=== PATIENT | female | born 1935 | race Caucasian/White ===

== ENCOUNTER 2024-01-14 20:35 | Emergency (ER) | payer MEDICARE, OTHER, SELFPAY ==
[2024-01-14 20:38] VITALS: BP 159/99
[2024-01-14 22:22] VITALS: BP 190/74
--- NOTE | 2024-01-14 22:44 | ED.GENMED ---
History of Present Illness
General
Chief Complaint: Blood Pressure Problem
Source: patient
Time Seen by Provider: 01/14/24 22:28
Travel History
Have you had any contact with someone who has COVID-19?: No
Do you have any symptoms of coronavirus? Fever > 100 degrees, chills, cough, shortness of breath, sore throat, loss of taste or smell, muscle aches, or headache?: No
History of Present Illness
History of Present Illness:
This patient is an 88-year-old female who was feeling perfectly well until after dinner this evening, she was just sitting there and started to feel dizzy described as feeling 'weird'. This was not associated with a sense of movement or spinning,
nausea, vomiting, fever, chills, numbness, tingling, change in vision, change in speech, focal weakness, chest pain, dyspnea, or other abnormalities. She denies recent leg swelling, recent trauma. She is compliant with her medications. She
checked her blood pressure and noticed that it was elevated which prompted her to call her daughter to bring her here. She is now asymptomatic. Patient denies recent urinary symptoms or other complaints.
Past History
Past History
ED Past Medical History: Arrthythmia (Status post ablation), HTN, Hypothyroidism, Other (Arthritis) and Other (Diverticulitis)
ED Past Surgical History: Orthopedic and Other (Ablation)
Social History
Tobacco: Non-smoker
Alcohol: Occasional
Drug: None
Personal:
Living: alone
Family History
Family History: Negative Diabetes, Hypertension, Early CAD, Asthma or Cancer
Phy Exam
Physical Exam
Physical Exam:
GENERAL: Alert , in no apparent distress
EYE: pupils equal and reactive, no photophobia, no nystagmus, EOMI
NECK: Supple, no significant adenopathy.
ENT: o/p clr, mmm.
CARDIAC: Regular rate and rhythm, 2 out of 6 systolic murmur noted.
LUNGS: Clear breath sounds bilaterally, no acute respiratory distress, no wheezes/rales/rhonchi
ABDOMEN: Soft, without focal tenderness, no r/g, no cvat
NEUROLOGICAL: Alert and oriented, no focal neuro deficits, motor 5 out of 5, sensory intact, [id number] normal, cranial nerves II through XII intact
SKIN: Warm and dry, skin intact.
MUSCULOSKELETAL: No edema, well perfused.
PSYCH: Normal and appropriate interaction.
Course
Orders/Labs/Results
Orders:
Orders
01/14/24 20:43
Electrocardiogram (*1) Urgent
Reason for Study: Vertigo / Dizzy
EKG- Treatment ONCE
01/14/24 22:37
Electrocardiogram (*1) Stat
Reason for Study: Vertigo / Dizzy
Cardiac Monitoring- Treatment ONCE
O2 Therapy [RESP] Urgent
Titrate/Wean O2 to maintain O2 sat greater than (%): 90
Special Instructions: Maintain sats >/=90%
Pulse Ox/spot Check [RESP] Urgent
Quantity: 1
Special Instructions: ON ROOM AIR
01/14/24 22:39
Complete Blood Count/With Diff Urgent
Comprehensive Metabolic Panel Urgent
Troponin I Urgent
01/14/24 23:36
Urinalysis Reflex To Culture Urgent
Date Specimen was Collected: 01/14/24
Time Specimen was Collected: 23:32
Urine Microscopic Reflex Cult Urgent
01/15/24 00:00
CT Head W/o Iv Contrast Urgent
Reason For Exam: dizzy
Abnormal Lab Results
01/14/24 01/14/24
22:39 23:36
WBC 11.4 H 10^3/uL
(4.8-10.8)
MCH 32.2 H pg
(27.0-31.0)
Absolute Neuts (auto) 9.2 H 10^3/uL
(1.4-6.5)
Neutrophils % 80.8 H %
(42.2-75.2)
Lymphocytes % 12.2 L %
(20.5-51.1)
Sodium 132 L mmol/L
(135-145)
Creatinine 0.5 L mg/dL
(0.6-1.0)
Glucose 119 H mg/dl
(70-99)
Ur Occult Blood Reflex Trace A
(Negative)
Leukocyte Esterase Rfl Trace A
(Negative)
01/14/24 22:39
01/14/24 22:39
Vital Signs
Initial and Last Documented VS:
Initial Vital Signs
Temp Pulse Resp BP Pulse Ox
98.3 F 80 16 159/99 97
01/14/24 20:38 01/14/24 20:38 01/14/24 20:38 01/14/24 20:38 01/14/24 20:38
Last Documented Vital Signs
Temp Pulse Resp BP Pulse Ox
98.3 F 69 14 135/84 97
01/14/24 20:38 01/15/24 00:15 01/15/24 00:15 01/15/24 00:00 01/14/24 20:38
*Critical Care Note
Total Time (30-74mins, 75-104mins- exclusive of procedures): Not Applicable
Update Note
Update Note:
Patient presents to the Emergency Department with ___dizziness
Number and Complexity of Problems Addressed at the Encounter
� Chronic conditions affecting care:
� Acute Exacerbation and/or Progression of Chronic Illness:
� Differential Diagnosis includes: But not limited to electrolyte disturbance, spontaneous intracerebral bleed, hypertension related dizziness, etc.
Amount and/or Complexity of Data to be Reviewed and Analyzed
� I performed an independent evaluation of and my interpretation is:
EKG: Read by me, normal sinus rhythm, LVH, slight ST depressions with T wave inversions laterally which is unchanged from prior ECG
CT: Vision read no evidence of acute intracranial abnormality, small lacunar in the right basal ganglia, mild volume loss
Xrays:
Laboratory Studies: Generally unremarkable
Other:
� Review of other/old records reveals: Patient admitted for cardioversion August 2022
� Clinical information was obtained by an independent historian: Daughter who is bedside
� Prescriptions/Medications Considered but not given:
� Further testing considered but not performed:
Risk of Complications and/or Morbidity or Mortality of Patient Management
� Social determinants of health affecting care:
� Discussion with other providers (PCP, Hospitalists, Consultants, etc):
� Escalation of care including admission/observation vs risk of discharge considered: 1:19 AM patient remains well-appearing, no symptoms noted. No chest pain, numbness, tingling, neurological symptoms, etc. Symptoms earlier
may have been related to episode of elevated blood pressure. Patient advised to check her blood pressure and record it once a day at the same time for the next week until she sees Dr. Desouza as scheduled on Tuesday. If elevated markedly or
associated symptoms she is advised to contact him or return to the ER [facility].
ED Attending Note
-
Portions of this chart may have been created with voice recognition software.� Occasional wrong word or��sound alike� substitutions may have occurred due to the inherent limitations of voice recognition software.
Discharge Plan
Departure
Patient Disposition: Home (Routine Discharge)
Date of Disposition: 01/15/24
Time of Disposition: 01:17
Patient with high blood pressure during this ER visit?: Yes
Condition: Good
Discharge Problem:
Dizziness
Instructions: Dizziness, Adult ED, BLOOD PRESSURE
Prescriptions:
No Action
cholecalciferol (vitamin D3) 1,000 UNITS tablet
1,000 units PO DAILY
spironolactone 25 mg Tablet
25 mg PO DAILY
losartan 100 mg Tablet
100 mg PO DAILY
Eliquis 5 mg Tablet
5 mg PO BID
levothyroxine [Synthroid] 50 mcg Tablet
50 mcg PO DAILY
acetaminophen [Tylenol] 325 mg Tablet
325 mg PO DAILYPRN PRN (Reason: mild pain)
fexofenadine 60 mg Tablet
60 mg PO QPM
cyanocobalamin (vitamin B-12) 250 mcg Tablet
250 mcg PO DAILY
diltiazem HCl 120 mg Capsule,Extended Release 24 Hr
120 mg PO DAILY
timolol maleate (PF) 0.5 % Dropperette
1 drp LEFT EYE BID
Lumigan 0.01 % Drops
1 drp OPHTHALMIC (EYE) DAILY
Rx Instructions:
left eye
Referrals:
Rashawn Kapoor MD [Family Provider] - Next open appointment
Activity Restrictions/Additional Instructions:
IF YOU DEVELOP RECURRENT/NEW DIZZINESS, ANY CHEST PAIN, TROUBLE BREATHING, FEVER, VOMITING, NUMBNESS, CHANGE IN VISION/SPEECH, OR OTHER WORRISOME SIGNS, GO TO THE ER IMMEDIATELY!
Interventions
Interventions:
*Risk Screen - Suicide Last Done: 01/14/24 20:38
*General Assessment Last Done: 01/14/24 20:38
*Neglect/Abuse Screening Last Done: 01/14/24 20:38
*ED COVID-19 Vaccine History Last Done: 01/14/24 20:38
ED- Cardiac Assessment Last Done: 01/14/24 22:45
ED- Neurological Assessment Last Done: 01/14/24 22:45
ED- Pulmonary Assessment Last Done: 01/14/24 22:45
[2024-01-14 22:50] VITALS: BP 166/82
[2024-01-14 22:50] LABS: % Basophils 0.4 % (0-2); % Eosinophils 0.8 % (0-6); % Immature Granulocytes 0.4 % (0-0.5); % Lymphocytes 12.2 % (20.5-51.1); % Monocytes 5.4 % (1.7-9.3); % Neutrophils 80.8 % (42.2-75.2); Absolute Eosinophils 0.1 10^3/uL (0-0.7); Absolute Lymphocytes 1.4 10^3/uL (1.2-3.4); Absolute Monocytes 0.6 10^3/uL (0.1-0.6); Absolute Neutrophils 9.2 10^3/uL (1.4-6.5); Hematocrit 40.2 % (37.0-47.0); Hemoglobin 14.6 g/dL (12.0-16.0); Mean Corp Hgb Conc. 36.3 g/dL (33.0-37.0); Mean Corpuscular Hgb 32.2 pg (27.0-31.0); Mean Corpuscular Volume 88.7 fL (81.0-99.0); Mean Platelet Volume 9.7 fL (7.4-10.4); Nucleated Red Blood Cells % 0 %; Platelet Count 270 10^3/uL (130-400); Red Blood Cell Count 4.53 10^6/uL (4.20-5.40); Red Cell Dist. Width 13.2 % (11.5-14.5); White Blood Cell Count 11.4 10^3/uL (4.8-10.8)
[2024-01-14 23:00] VITALS: BP 157/73
[2024-01-14 23:03] LABS: ALT (SGPT) 18 U/L (0-35); AST (SGOT) 26 U/L (14-36); Albumin 4.4 g/dl (3.5-5.0); Alkaline Phosphatase 88 U/L (38-126); Blood Urea Nitrogen 14 mg/dl (7-17); Calcium 9.8 mg/dl (8.4-10.2); Carbon Dioxide 23 mmol/L (22-30); Chloride 102 mmol/L (98-107); Estimated Creatinine Clearance 58 ml/min; Glucose 119 mg/dl (70-99); Potassium 4.1 mmol/L (3.5-5.1); Sodium 132 mmol/L (135-145); Total Bilirubin 0.6 mg/dl (0.2-1.3); Total Protein 7.8 g/dl (6.3-8.2); eGFR > 60.00
[2024-01-14 23:14] LABS: Troponin I < 0.012 ng/ml
[2024-01-15] VITALS: BP 135/84
[2024-01-15 00:05] LABS: Urine Albumin Negative (Neg - Trace); Urine Bilirubin Negative (Negative); Urine Character Clear (Clear); Urine Color Straw; Urine Glucose Negative (Negative); Urine Ketone Negative (Negative); Urine Leukocyte Trace (Negative); Urine Nitrite Negative (Negative); Urine Occult Blood Trace (Negative); Urine Urobilinogen Negative (Neg - 1+)
[2024-01-15 00:20] LABS: Urine Red Blood Cell None Seen /HPF (0-2)
== END 2024-01-15 01:40 | disposition home or self-care (01) ==
LOC: EMR 20:35
PROVIDERS: EMERGENCY PHYSICIAN Emergency Medicine; FAMILY PHYSICIAN Internal Medicine Geriatric Medicine
DX: R42 Dizziness and giddiness (principal); R01.1 Cardiac murmur, unspecified; E03.9 Hypothyroidism, unspecified; M19.90 Unspecified osteoarthritis, unspecified site; K57.92 Diverticulitis of intestine, part unspecified, without perforation or abscess without bleeding; Z88.8 Allergy status to other drugs, medicaments and biological substances; Z91.030 Bee allergy status; Z91.013 Allergy to seafood; Z79.01 Long term (current) use of anticoagulants
CPT/HCPCS: 99285; 94760; 70450; 80053; 81003; 81015; 84484; 85025; 93005

== ENCOUNTER → 2024-04-19 07:41 | Outpatient (REF) | payer MEDICARE, OTHER, SELFPAY ==
[2024-04-19 09:18] LABS: % Basophils 0.5 % (0-2); % Eosinophils 2.5 % (0-6); % Immature Granulocytes 0.5 % (0-0.5); % Lymphocytes 31.5 % (20.5-51.1); % Monocytes 7.9 % (1.7-9.3); % Neutrophils 57.1 % (42.2-75.2); Absolute Eosinophils 0.1 10^3/uL (0-0.7); Absolute Lymphocytes 1.4 10^3/uL (1.2-3.4); Absolute Monocytes 0.4 10^3/uL (0.1-0.6); Absolute Neutrophils 2.5 10^3/uL (1.4-6.5); Hematocrit 40.4 % (37.0-47.0); Hemoglobin 13.7 g/dL (12.0-16.0); Mean Corp Hgb Conc. 33.9 g/dL (33.0-37.0); Mean Corpuscular Hgb 31.4 pg (27.0-31.0); Mean Corpuscular Volume 92.7 fL (81.0-99.0); Mean Platelet Volume 9.9 fL (7.4-10.4); Nucleated Red Blood Cells % 0 %; Platelet Count 250 10^3/uL (130-400); Red Blood Cell Count 4.36 10^6/uL (4.20-5.40); Red Cell Dist. Width 13.6 % (11.5-14.5); White Blood Cell Count 4.4 10^3/uL (4.8-10.8)
[2024-04-19 09:41] LABS: ALT (SGPT) 20 U/L (0-35); AST (SGOT) 29 U/L (14-36); Albumin 4.4 g/dl (3.5-5.0); Alkaline Phosphatase 65 U/L (38-126); Blood Urea Nitrogen 12 mg/dl (7-17); Calcium 9.8 mg/dl (8.4-10.2); Carbon Dioxide 30 mmol/L (22-30); Chloride 100 mmol/L (98-107); Glucose 100 mg/dl (70-99); HDL Cholesterol 75 mg/dl; LDL Cholesterol, Calculated 148 mg/dl; Phosphorus 4.2 mg/dl (2.5-4.5); Potassium 4.5 mmol/L (3.5-5.1); Sodium 136 mmol/L (135-145); Total Bilirubin 0.7 mg/dl (0.2-1.3); Total Cholesterol 243 mg/dl (50-199); Total Protein 7.7 g/dl (6.3-8.2); Triglyceride 104 mg/dl (10-149); Very Low Density Lipoprotein 20 mg/dl (0-30); eGFR > 60.00
[2024-04-19 09:57] LABS: Free T4 0.88 ng/dl (0.78-2.19); Vitamin D, 25-OH*** 51.2 ng/mL (30-80)
[2024-04-19 10:10] LABS: TSH 3.28 uIU/ml (0.47-4.68)
[2024-04-19 13:58] LABS: Urine Albumin Negative (Neg - Trace); Urine Bilirubin Negative (Negative); Urine Character Clear (Clear); Urine Color Yellow; Urine Glucose Negative (Negative); Urine Ketone Negative (Negative); Urine Leukocyte Negative (Negative); Urine Nitrite Negative (Negative); Urine Occult Blood Negative (Negative); Urine Urobilinogen Negative (Neg - 1+)
== END ==
LOC: REG 07:41
PROVIDERS: ATTENDING PHYSICIAN Internal Medicine Geriatric Medicine
DX: I10 Essential (primary) hypertension (principal); E03.9 Hypothyroidism, unspecified; I48.19 Other persistent atrial fibrillation; E78.5 Hyperlipidemia, unspecified; R73.01 Impaired fasting glucose; Z99.89 Dependence on other enabling machines and devices; I70.0 Atherosclerosis of aorta; E55.9 Vitamin D deficiency, unspecified; Z13.89 Encounter for screening for other disorder; I48.0 Paroxysmal atrial fibrillation; H40.1230 Low-tension glaucoma, bilateral, stage unspecified
CPT/HCPCS: 36415; 80053; 80061; 81003; 82306; 84100; 84439; 84443; 85025

== ENCOUNTER → 2024-07-12 09:58 | Outpatient (REF) | payer MEDICARE, OTHER, SELFPAY | LOC: RCS 09:58 | PROVIDERS: ATTENDING PHYSICIAN Internal Medicine Interventional Cardiology; FAMILY PHYSICIAN Internal Medicine Geriatric Medicine | DX: I35.0 Nonrheumatic aortic (valve) stenosis (principal) | CPT/HCPCS: 93306 ==

== ENCOUNTER → 2024-09-24 10:30 | Outpatient (REF) | payer MEDICARE, OTHER, SELFPAY | LOC: RAD 10:30 | PROVIDERS: ATTENDING PHYSICIAN Internal Medicine Gastroenterology; FAMILY PHYSICIAN Internal Medicine Geriatric Medicine | DX: K59.01 Slow transit constipation (principal) | CPT/HCPCS: 74018 ==

== ENCOUNTER → 2024-11-09 08:14 | Day surgery (SDC) | payer MEDICARE, OTHER, SELFPAY ==
[2024-11-09 08:53] LABS: Hematocrit 42.2 % (37.0-47.0); Hemoglobin 14.4 g/dL (12.0-16.0); Mean Corp Hgb Conc. 34.1 g/dL (33.0-37.0); Mean Corpuscular Hgb 32.1 pg (27.0-31.0); Mean Platelet Volume 9.6 fL (7.4-10.4); Platelet Count 259 10^3/uL (130-400); Red Blood Cell Count 4.49 10^6/uL (4.20-5.40); Red Cell Dist. Width 13.4 % (11.5-14.5); White Blood Cell Count 5.5 10^3/uL (4.8-10.8)
[2024-11-09 09:26] LABS: Blood Urea Nitrogen 12 mg/dl (7-17); Calcium 9.8 mg/dl (8.4-10.2); Carbon Dioxide 30 mmol/L (22-30); Chloride 98 mmol/L (98-107); Glucose 106 mg/dl (70-99); Potassium 4.2 mmol/L (3.5-5.1); Sodium 136 mmol/L (135-145); eGFR > 60.00
== END ==
LOC: SDSPAT 08:14
PROVIDERS: ATTENDING PHYSICIAN Surgery; FAMILY PHYSICIAN Internal Medicine Geriatric Medicine
DX: Z01.810 Encounter for preprocedural cardiovascular examination (principal)
CPT/HCPCS: 85027; 36415; 80048

== ENCOUNTER 2024-11-23 06:48 | Day surgery (SDC) | payer MEDICARE, OTHER, SELFPAY ==
[2024-11-09 13:01] VITALS: BMI 29.6
[2024-11-23] VITALS (10 sets, daily range): BP systolic 120–166; BP diastolic 62–91; BMI 29.6
--- NOTE | 2024-11-23 06:51 | HP.FOC2 ---
Focused History & Physical
Chief Complaint
HPI:
Chief Complaint: Right inguinal/femoral hernia
HPI / Indication for Planned Procedure: 89-year-old female with longstanding history of intermittent swelling and discomfort in the right inguinal region. Her symptoms are rather sporadic however over the past few months she has been experiencing a
burning discomfort and pinch in the right inguinal region on a more regular basis. She is also able to palpate a lump which is larger in size than previously. At times it is hard to reduce and firm to the touch. These events will usually last for
15 to 20 minutes until the hernia is able to be reduced. Bowels are generally otherwise moving regularly. No symptoms in the left inguinal region.
Relevant Past Medical History: Other (Dropped bladder, paroxysmal atrial tachycardia, hypertension, hyperlipidemia, history of H. pylori, history of retinal tear, GERD, osteoarthritis, hypothyroidism, Raynaud's, A-fib, hemorrhoids)
Relevant Social History: Negative
Relevant Family History: Negative
Relevant Past Surgical History: Positive for (Bladder lift, AP vaginal repair, cholecystectomy, hysterectomy, LIH repair, left total knee, breast biopsies, cardiac ablation)
Review of Systems
Review of Pertinent Systems: All Systems Negative
Medication
See Medication form for detailed medications: Yes
Medication List (including Herbals & OTC):
cholecalciferol (vitamin D3) 25 mcg (1,000 unit) tablet 1,000 units PO DAILY 04/18/18
apixaban 5 mg tablet (Eliquis) 5 mg PO BID 09/03/22
losartan 100 mg tablet 100 mg PO DAILY 09/03/22
spironolactone 25 mg tablet 25 mg PO DAILY 09/03/22
levothyroxine 50 mcg tablet (Synthroid) 50 mcg PO DAILY 05/16/23
cyanocobalamin (vitamin B-12) 250 mcg tablet 250 mcg PO DAILY 08/29/23
diltiazem HCl 120 mg capsule,24 hr,extended release 120 mg PO DAILY 08/29/23
fexofenadine 60 mg tablet 60 mg PO QPM 08/29/23
timolol maleate (PF) 0.5 % eye drops in a dropperette 1 drp BOTH EYES BID 08/29/23
bimatoprost 0.01 % eye drops (Lumigan) 1 drp ophthalmic (eye) HS 01/14/24
Medications Reviewed: Yes
Allergies and Reactions
Patient has Allergies: Yes
Noted Allergies and Reactions:
Allergy/AdvReac Type Severity Reaction Status Date / Time
bee venom protein (honey bee) Allergy Swelling Verified 11/16/24 09:10
brimonidine Allergy Swelling Verified 11/16/24 09:10
of eye
difluprednate [From Durezol] Allergy swelling Verified 11/16/24 09:10
of eye
furosemide [From Lasix] Allergy ringing of Verified 11/16/24 09:10
ears
labetalol Allergy over-all Verified 11/16/24 09:10
sickness
metronidazole Allergy irritated Verified 11/16/24 09:10
skin
shellfish derived Allergy Swelling Verified 11/16/24 09:10
of lips
(1980)
dexamethasone AdvReac Swelling Verified 11/16/24 09:10
of legs
after
dental
procedure
Pertinent Physical Exam
All Other Systems: Negative
Head/Neck: Normal
Lungs: Normal
Heart: Normal
Abdomen: Other (Reducible right inguinal hernia, probable femoral)
Extremities: Normal
Neurological: Normal
Diagnosis / Assessment
89-year-old female presenting for scheduled operative correction right inguinal/femoral hernia
Plan / Procedure
Laparoscopic repair right inguinal/femoral hernia with mesh
Anesthesia/Sedation to be done by Anesthesia Provider: Yes
--- NOTE | 2024-11-23 06:54 | W.SUR.PREOP ---
Pre-Operative Surgical Note
-
I have examined this patient prior to the performance of the scheduled procedure.
The patient's condition is unchanged from the time of the current History and
Physical and the patient is able to undergo the scheduled procedure.
[2024-11-23] MEDS: NORMOSOL-R/PLASMALYTE-A 1000 IV (07:44)
[2024-11-23] MEDS: EMEND 40 MG PO (07:44)
[2024-11-23] MEDS: TYLENOL 1000 MG PO (07:44)
--- NOTE | 2024-11-23 09:16 | W.IMMPOSTOP ---
Addendum entered and electronically signed by Arthur Raza MD 11/23/24 09:25:
#[id number]
Original Note:
Surgical Immed Post Op Note
-
Primary Surgeon: Arthur Raza MD
Assisting Surgeon: Justine Dalal PA-c
Pre-op Diagnosis: RIH
Post-op Diagnosis: Right femoral hernia
Procedure Performed: Lap TEP Right Femoral Hernia repair with mesh; 3d max lg mid
Anesthesia Type: GETA + 0.25% Marcaine w/ epi
Specimen / Cultures: None
Estimated Blood Loss: 4 mL
Complications: None immediate
Operative Findings: Right femoral hernia. Direct space normal. Indirect space normal. No peritoneal entry. 3D max large mid weight mesh. Secured to Alfredo's x 2 with capture tacks
The assistance of Justine Puente PA-C was required due to the complexity of the procedure. During the procedure Justine Puente PA-C assisted with management of the laparoscope for visualization and closure of the incision sites.
== END 2024-11-23 10:57 | disposition home or self-care (01) ==
LOC: SDS 06:48
PROVIDERS: ATTENDING PHYSICIAN Surgery; FAMILY PHYSICIAN Internal Medicine Geriatric Medicine
DX: K41.90 Unilateral femoral hernia, without obstruction or gangrene, not specified as recurrent (principal)
CPT/HCPCS: 49659

== ENCOUNTER → 2025-04-22 08:02 | Outpatient (REF) | payer MEDICARE, OTHER, SELFPAY ==
[2025-04-22 08:53] LABS: % Basophils 0.9 % (0-2); % Eosinophils 2.8 % (0-6); % Immature Granulocytes 0.4 % (0-0.5); % Monocytes 10.2 % (1.7-9.3); % Neutrophils 60.7 % (42.2-75.2); Absolute Basophils 0.1 10^3/uL (0-0.2); Absolute Eosinophils 0.2 10^3/uL (0-0.7); Absolute Lymphocytes 1.4 10^3/uL (1.2-3.4); Absolute Monocytes 0.6 10^3/uL (0.1-0.6); Absolute Neutrophils 3.5 10^3/uL (1.4-6.5); Hematocrit 41.8 % (37.0-47.0); Hemoglobin 13.9 g/dL (12.0-16.0); Mean Corp Hgb Conc. 33.3 g/dL (33.0-37.0); Mean Corpuscular Hgb 31.5 pg (27.0-31.0); Mean Corpuscular Volume 94.8 fL (81.0-99.0); Mean Platelet Volume 9.4 fL (7.4-10.4); Nucleated Red Blood Cells % 0 %; Platelet Count 290 10^3/uL (130-400); Red Blood Cell Count 4.41 10^6/uL (4.20-5.40); Red Cell Dist. Width 13.8 % (11.5-14.5); White Blood Cell Count 5.7 10^3/uL (4.8-10.8)
[2025-04-22 09:19] LABS: Urine Albumin Negative (Neg - Trace); Urine Bilirubin Negative (Negative); Urine Character Clear (Clear); Urine Color Yellow; Urine Glucose Negative (Negative); Urine Ketone Negative (Negative); Urine Leukocyte Negative (Negative); Urine Nitrite Negative (Negative); Urine Occult Blood 1+ (Negative); Urine Urobilinogen Negative (Neg - 1+)
[2025-04-22 09:23] LABS: ALT (SGPT) 18 U/L (0-35); AST (SGOT) 22 U/L (14-36); Albumin 4.4 g/dl (3.5-5.0); Alkaline Phosphatase 77 U/L (38-126); Blood Urea Nitrogen 12 mg/dl (7-17); Calcium 10.1 mg/dl (8.4-10.2); Carbon Dioxide 28 mmol/L (22-30); Chloride 101 mmol/L (98-107); Glucose 102 mg/dl (70-99); HDL Cholesterol 95 mg/dl; LDL Cholesterol, Calculated 146 mg/dl; Potassium 4.3 mmol/L (3.5-5.1); Sodium 137 mmol/L (135-145); Total Bilirubin 0.7 mg/dl (0.2-1.3); Total Cholesterol 255 mg/dl (50-199); Total Protein 7.7 g/dl (6.3-8.2); Triglyceride 72 mg/dl (10-149); Very Low Density Lipoprotein 14 mg/dl (0-30); eGFR > 60.00
[2025-04-22 09:54] LABS: Erythrocyte Sed Rate 57 mm/hour (0-20)
[2025-04-22 10:12] LABS: Urine Squamous Cell 0-2 /LPF (Few)
[2025-04-22 10:13] LABS: Urine Amorphous Seen; Urine Hyaline Cast 0-2 /LPF (0-2); Urine Urothelial Cell 0-2 /LPF (FEW)
[2025-04-22 10:14] LABS: Urine Red Blood Cell 0-2 /HPF (0-2); Urine White Cell 0-2 /HPF (0-5)
[2025-04-22 10:49] LABS: Glycohemoglobin (HgbA1c) 5.9 % (4.0-5.6)
[2025-04-22 12:27] LABS: Vitamin D, 25-OH*** 36.9 ng/mL (30-80)
[2025-04-22 12:41] LABS: TSH 4.12 uIU/ml (0.47-4.68)
[2025-04-22 14:54] LABS: Vitamin B12 > 1000 pg/ml (239-931)
== END ==
LOC: REG 08:02
PROVIDERS: ATTENDING PHYSICIAN Nurse Practitioner Primary Care; FAMILY PHYSICIAN Internal Medicine Geriatric Medicine
DX: E78.00 Pure hypercholesterolemia, unspecified (principal); R73.03 Prediabetes; E03.9 Hypothyroidism, unspecified; R53.83 Other fatigue; E53.8 Deficiency of other specified B group vitamins; E55.9 Vitamin D deficiency, unspecified
CPT/HCPCS: 36415; 80053; 80061; 81003; 81015; 82306; 82607; 83036; 84439; 84443; 85025; 85652; 86140

== ENCOUNTER 2025-05-19 01:13 | Inpatient (IN) | payer MEDICARE, OTHER, SELFPAY ==
[2025-05-18 21:17] VITALS: BP 162/81
[2025-05-18 22:31] VITALS: BMI 28.9
--- NOTE | 2025-05-18 22:32 | ED.GENMED ---
History of Present Illness
General
Chief Complaint: Cardiac Symptoms
Source: patient and family
Exam Limitations: none
Time Seen by Provider: 05/18/25 22:16
Nursing documentation reviewed up to this point in time: agreed with
History of Present Illness
History of Present Illness:
89-year-old female past with history of A-fib currently on Eliquis, aortic stenosis presenting to the emergency department feeling 'off' does feel some fatigue weakness. 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
Holter monitor in place since yesterday. Symptoms worsened today with father, the ER. No specific chest pain or shortness of breath. No palpitations. Patient currently on amlodipine no other beta-blockers or calcium channel blockers.
Past History
Past History
ED Past Medical History: Arrthythmia (Status post ablation), HTN, Hypothyroidism, Other (Arthritis) and Other (Diverticulitis)
ED Past Surgical History: Orthopedic and Other (Ablation)
Social History
Tobacco: Non-smoker
Alcohol: Occasional
Drug: None
Personal:
Living: alone
Family History
Family History: Negative Diabetes, Hypertension, Early CAD, Asthma or Cancer
Review of Systems
Review of Systems
Allergies reviewed?: Yes
All Other Systems: ROS reviewed and negative except as documented in HPI and ROS
Phy Exam
Physical Exam
Physical Exam:
GENERAL: Alert , in no apparent distress
EYE: pupils equal and reactive
NECK: Supple, no significant adenopathy.
ENT: o/p clr, mmm.
CARDIAC: Regular rate and rhythm .
LUNGS: Clear breath sounds bilaterally, no acute respiratory distress, no wheezes/rales/rhonchi
ABDOMEN: Soft, without focal tenderness, no r/g, no cvat
NEUROLOGICAL: Alert and oriented, no focal neuro deficits
SKIN: Warm and dry, skin intact.
MUSCULOSKELETAL: No edema, well perfused.
PSYCH: Normal and appropriate interaction.
Course
Orders/Labs/Results
Orders:
Orders
05/18/25 21:08
Electrocardiogram (*1) Urgent
Reason for Study: Vertigo / Dizzy
EKG- Treatment ONCE
05/18/25 22:37
Complete Blood Count/With Diff Urgent
Comprehensive Metabolic Panel Urgent
Magnesium Urgent
TSH Urgent
Troponin I Urgent
Abnormal Lab Results
05/18/25
22:37
MCH 32.5 H pg
(27.0-31.0)
Sodium 133 L mmol/L
(135-145)
Creatinine 0.5 L mg/dL
(0.6-1.0)
05/18/25 22:37
05/18/25 22:37
Vital Signs
Initial and Last Documented VS:
Initial Vital Signs
Temp Pulse Resp BP Pulse Ox
98.2 F 65 18 162/81 98
05/18/25 21:17 05/18/25 21:17 05/18/25 21:17 05/18/25 21:17 05/18/25 21:17
Last Documented Vital Signs
Temp Pulse Resp BP Pulse Ox
98.2 F 71 17 143/69 97
05/18/25 21:17 05/18/25 23:21 05/18/25 23:21 05/18/25 23:00 05/18/25 22:33
MDM/Problems Addressed
MDM/Problems Addressed:
89-year-old female presenting to the emergency department today with concerns of feeling weak and tired. Here she found to have low heart rate in the 30s intermittently heart rate at baseline in the 50s. Also had a few episodes of sinus pause.
Pads were placed as a precaution otherwise case discussed with cardiology plan to admit to IVU for monitoring overnight potential pacemaker.
*Pulse Oximetry
SaO2: 97
Oxygen Mode of Delivery: Room air
Patient hypoxic: no (97)
*Critical Care Note
Total Time (30-74mins, 75-104mins- exclusive of procedures): Not Applicable
ED Attending Note
-
Portions of this chart may have been created with voice recognition software.� Occasional wrong word or��sound alike� substitutions may have occurred due to the inherent limitations of voice recognition software.
Discharge Plan
Departure
Patient Disposition: Admit
Date of Disposition: 05/18/25
Time of Disposition: 23:55
Admit to: IVU
Admit to doctor: Mitchel
Presentation/result/management discussed w/ accepting MD/DO: Hospitalist
Patient with high blood pressure during this ER visit?: No
Condition: Fair
Covid-19: Not Applicable
Discharge Problem:
Bradycardia
Prescriptions:
No Action
cholecalciferol (vitamin D3) 1,000 UNITS tablet
1,000 units PO DAILY
spironolactone 25 mg Tablet
25 mg PO DAILY
losartan 100 mg Tablet
100 mg PO DAILY
Eliquis 5 mg Tablet
5 mg PO BID
levothyroxine [Synthroid] 50 mcg Tablet
50 mcg PO DAILY
fexofenadine 60 mg Tablet
60 mg PO QPM
cyanocobalamin (vitamin B-12) 250 mcg Tablet
250 mcg PO DAILY
diltiazem HCl 120 mg Capsule,Extended Release 24 Hr
120 mg PO DAILY
timolol maleate (PF) 0.5 % Dropperette
1 drp BOTH EYES BID
Lumigan 0.01 % Drops
1 drp OPHTHALMIC (EYE) HS
Rx Instructions:
left eye
tramadol 50 mg tablet
25 - 50 mg PO Q6HPRN PRN (Reason: severe pain/breakthrough pain) Qty: 5 0RF
acetaminophen [Tylenol Extra Strength] 500 mg tablet
1,000 mg PO Q6HPRN PRN (Reason: mild pain) Qty: 1 0RF
polyethylene glycol 3350 [Miralax] 17 gram/dose powder
4 g PO DAILY PRN (Reason: Constipation) Qty: 119 0RF
Rx Instructions:
start a laxative such as MIRALAX on day 2 after surgery if no bowel movement yet as long as no nausea/vomiting and passing gas
Referrals:
Rashawn Kapoor MD [Family Provider, Internal Medicine]
Interventions
Interventions:
*Risk Screen - Suicide Last Done: 05/18/25 21:17
*General Assessment Last Done: 05/18/25 21:17
*Neglect/Abuse Screening Last Done: 05/18/25 21:17
ED- Pulmonary Assessment Last Done: 05/18/25 22:40
ED- Cardiac Assessment Last Done: 05/18/25 22:40
Discharge Date and Time
Print Language: POLISH
[2025-05-18 22:44] LABS: Hematocrit 39.1 % (37.0-47.0); Hemoglobin 13.7 g/dL (12.0-16.0); Mean Corp Hgb Conc. 35.0 g/dL (33.0-37.0); Mean Corpuscular Volume 92.7 fL (81.0-99.0); Nucleated Red Blood Cells % 0 %; Platelet Count 235 10^3/uL (130-400); Red Cell Dist. Width 13.2 % (11.5-14.5)
[2025-05-18 23:00] VITALS: BP 143/69
[2025-05-18 23:09] LABS: ALT (SGPT) 18 U/L (0-35); AST (SGOT) 22 U/L (14-36); Albumin 4.2 g/dl (3.5-5.0); Alkaline Phosphatase 73 U/L (38-126); Blood Urea Nitrogen 11 mg/dl (7-17); Calcium 9.4 mg/dl (8.4-10.2); Carbon Dioxide 27 mmol/L (22-30); Chloride 102 mmol/L (98-107); Estimated Creatinine Clearance 55 ml/min; Glucose 91 mg/dl (70-99); Magnesium 2.2 mg/dl (1.6-2.3); Potassium 4.0 mmol/L (3.5-5.1); Sodium 133 mmol/L (135-145); Total Protein 7.2 g/dl (6.3-8.2); eGFR > 60.00
[2025-05-18 23:12] LABS: Troponin I < 0.012 ng/ml
[2025-05-18 23:41] LABS: TSH 3.57 uIU/ml (0.47-4.68)
[2025-05-19] VITALS (8 sets, daily range): BP systolic 126–145; BP diastolic 56–78; BMI 28.9; BMI 28.0
--- NOTE | 2025-05-19 00:43 | HPS.HSE ---
Family Physician
-
Family Physician: Rashawn Kapoor
Chief Complaint
-
Fatigue
History of Present Illness
Patient is an 89y F with PMH significant for A-Fib, AVNRT, hypertension and hypothyroidism who presents to ED complaining of fatigue and weakness x several weeks. Patient states that her diltiazem was stopped in January due to low heart rates.
Since that time she has been feeling more weak, fatigued, short of breath with activity and general 'brain fog'. She denies any chest pain, syncope / LOC, falls, etc.
She reports a 'sensation' in the epigastric region - denies pain, pressure, etc. Difficult to explain / describe. No N/V/D. No urinary complaints.
Patient was seen by Cardiology yesterday and had an ambulatory monitor placed.
She presented to the ED this evening for evaluation as she felt weak and lethargic all day today.
Medical History
Past Medical History
Past Medical History: Reports Other
Additional Past Medical History:
AVNRT
Paroxysmal Atrial Fibrillation
Hypertension
Hypothyroidism
GERD / Schatzki's Ring
Past Surgical History: Reports Other
Additional Past Surgical History:
Cardiac Ablation
Bladder Lift
Bilateral Inguinal Herniorrhaphies
Cholecystectomy
T&A
Hysterectomy
Bilateral Breast Biopsies
Left TKA
Social History
Tobacco: Former Smoker (Quit smoking 50 years ago.)
Alcohol: None
Drug: None
Family History
Family History: Not pertinent
Allergies / Home Medications
Allergies reflects when Allergies were last updated in [facility].
Home Medications with original date entered in [facility]
Allergy/Medication List:
Allergies
Allergy/AdvReac Type Severity Reaction Status Date / Time
bee venom protein (honey bee) Allergy Swelling Verified 11/23/24 07:31
brimonidine Allergy Swelling Verified 11/23/24 07:31
of eye
difluprednate (From Durezol) Allergy swelling Verified 11/23/24 07:31
of eye
furosemide (From Lasix) Allergy ringing of Verified 11/23/24 07:31
ears
labetalol Allergy over-all Verified 11/23/24 07:31
sickness
metronidazole Allergy irritated Verified 11/23/24 07:31
skin
shellfish derived Allergy Swelling Verified 11/23/24 07:31
of lips
(1980)
dexamethasone AdvReac Swelling Verified 11/23/24 07:31
of legs
after
dental
procedure
Home Medications
cholecalciferol (vitamin D3) 25 mcg (1,000 unit) tablet 1,000 units PO DAILY 04/18/18
apixaban 5 mg tablet (Eliquis) 5 mg PO BID 09/03/22
Held on 11/23/24. Instructions: Resume on 11/26/24. hold for 72hrs post op; resume Tuesday11/26/2024
losartan 100 mg tablet 100 mg PO DAILY 09/03/22
spironolactone 25 mg tablet 25 mg PO DAILY 09/03/22
levothyroxine 50 mcg tablet (Synthroid) 50 mcg PO DAILY 05/16/23
cyanocobalamin (vitamin B-12) 250 mcg tablet 250 mcg PO DAILY 08/29/23
fexofenadine 60 mg tablet 60 mg PO QPM 08/29/23
acetaminophen 500 mg tablet (Tylenol Extra Strength) 1,000 mg (2 x 500 mg) PO Q6HPRN PRN mild pain #1 tab 11/23/24
amlodipine 5 mg tablet 5 mg PO DAILY 05/19/25
Review of Systems
-
History Source: Patient
A 12 point ROS was completed and negative except as noted: Yes
Constitutional: Reports Fatigue; Denies Fever or Chills
EENT: Denies Sore Throat
Respiratory: Reports Trouble Breathing (SOB with activity / exertion); Denies Cough
Cardiac: Denies Chest Pain, Palpitations or Syncope
Abdomen/GI: Reports Abdominal Pain (odd epigastric 'sensation'); Denies Nausea, Vomiting or Diarrhea
: Denies Dysuria or Frequency
Musculoskeletal: Reports Edema (Chronic RLE edema.); Denies Joint Pain
Neurological: Denies Dizzy or Headache
Physical Exam
Vital Signs
Vital Signs
Temp Pulse Resp BP Pulse Ox
98.2 F 71 17 143/69 97
05/18/25 21:17 05/18/25 23:21 05/18/25 23:21 05/18/25 23:00 05/18/25 22:33
Physical Exam
General: Other (89y F in no distress.)
HEENT: Moist mucous membranes and PERRLA
Respiratory: Clear; No Wheezes, Rales or Rhonchi
Cardiac: S1/S2, Irregular Rhythm, Bradycardia and Murmur (II/ BERNARDO)
GI: Soft, Non Tender, Non Distended and Normal Bowel Sounds
Musculoskeletal: No Clubbing, No Cyanosis and Other (RLE edema - chronic and unchanged per patient.)
Neuro: AO x 3
Laboratory Results
-
05/18/25 22:37
05/18/25 22:37
Laboratory Results
Total Bilirubin 0.9 mg/dl (0.2-1.3) 05/18/25 22:37
AST 22 U/L (14-36) 05/18/25 22:37
ALT 18 U/L (0-35) 05/18/25 22:37
Alkaline Phosphatase 73 U/L (38-126) 05/18/25 22:37
Troponin I < 0.012 ng/ml 05/18/25 22:37
Impression/Plan
-
A/P: Patient is an 89y F with PMH significant for AVNRT, A-Fib and hypothyroidism who presents to ED for evaluation of fatigue.
Symptomatic Bradycardia
- Admit for further evaluation and treatment.
- Patient with heart rate in he 30s - 40s on telemetry with occasional pauses (< 3 seconds).
- Certainly consistent with recent symptoms of fatigue / general malaise.
- Not on any chronotropic medications at this time.
- Monitor on telemetry.
- Cardiology evaluation for additional recommendations +/- PPM placement.
Paroxysmal A-Fib
History of AVNRT
- Stable. Hold Eliquis acutely pending potential intervention / PPM placement.
- As noted, not on any chronic rate-control agents.
Benign Hypertension
- Stable. Continue current med regimen with holding parameters.
Hypothyroidism
- Stable. TFTs today were unremarkable.
- Continue current T4 supplementation.
DVT Prophylaxis: SCDs
Code Status: Full
--- NOTE | 2025-05-19 02:53 | PTCARENOTE ---
Pt admitted to room 2255 from ED, ambulated from stretcher to bed with assist x1, unsteady gait, uses cane at baseline, refused to use walker. SB on the tele monitor, with HR 30-50's, asymptomatic, denies fatigue, cp or SOB. O2 applied at 2L/min
during sleep. Pt oriented to room, call light within reach and advised to call for assistance.
[2025-05-19] MEDS: SYNTHROID 50 MCG PO (05:13)
[2025-05-19 05:18] LABS: Hematocrit 36.4 % (37.0-47.0); Hemoglobin 12.6 g/dL (12.0-16.0); Mean Corp Hgb Conc. 34.6 g/dL (33.0-37.0); Mean Corpuscular Volume 92.9 fL (81.0-99.0); Platelet Count 223 10^3/uL (130-400); Red Cell Dist. Width 13.3 % (11.5-14.5)
[2025-05-19 05:37] LABS: Blood Urea Nitrogen 8 mg/dl (7-17); Calcium 9.1 mg/dl (8.4-10.2); Carbon Dioxide 26 mmol/L (22-30); Chloride 105 mmol/L (98-107); Estimated Creatinine Clearance 55 ml/min; Glucose 93 mg/dl (70-99); HDL Cholesterol 74 mg/dl; LDL Cholesterol, Calculated 144 mg/dl; Magnesium 2.2 mg/dl (1.6-2.3); Potassium 3.8 mmol/L (3.5-5.1); Sodium 134 mmol/L (135-145); Very Low Density Lipoprotein 16 mg/dl (0-30); eGFR > 60.00
--- NOTE | 2025-05-19 07:52 | W.PN.HOSP.TC ---
Today's Communication/Plan
-
Appreciate Cardiology
NPO after MN for possible PPM
monitor BP off amlodipine
Assessment / Plan
Assessment / Plan
Patient is an 89y F with PMH significant for AVNRT, A-Fib and hypothyroidism who presents to ED for evaluation of fatigue, found to have bradycardia with HR in 30's-40's. She had been taken off any AV saritha blocking agents (Diltiazem) since
January.
Symptomatic Bradycardia
- Patient with drops in heart rate in he 30s - 40s on telemetry with occasional pauses (< 3 seconds). HR high 50's, low 60's this AM
- Not on any chronotropic medications at this time.
- Monitor on telemetry.
- Cardiology evaluation for additional recommendations +/- PPM placement. Per Dr. Rosas, OK to eat today, NPO after MN
Paroxysmal A-Fib
History of AVNRT
- Stable. Hold Eliquis acutely pending potential intervention / PPM placement.
- As noted, not on any chronic rate-control agents.
Benign Hypertension
- continue INFUSION PHARMACIST Losartan, Spironolactone
- hold amlodipine and monitor BP and symptoms (patient reports feeling unwell since starting this medication)
Hypothyroidism
- Stable. TFTs today were unremarkable.
- Continue current T4 supplementation.
DVT Prophylaxis: SCDs
Code Status: Full
Anticipated Discharge: 24 - 48 hours
Subjective/Interval History
-
Date of Service: May 19, 2025
patient states she has felt fatigued and off ever since starting amlodipine
no episodes of syncope
Objective Data
-
Labs:
Laboratory Results
05/18/25 05/19/25
22:37 04:59
WBC 6.3 5.7
Hgb 13.7 12.6
Hct 39.1 36.4 L
Plt Count 235 223
Sodium 133 L 134 L
Potassium 4.0 3.8
Chloride 102 105
Carbon Dioxide 27 26
BUN 11 8
Creatinine 0.5 L 0.4 L
Glucose 91 93
Calcium 9.4 9.1
Total Bilirubin 0.9
AST 22
ALT 18
Alkaline Phosphatase 73
Vital Signs:
Vital Signs
Temp Pulse Resp BP Pulse Ox
97.7 F 56 18 145/76 96
05/19/25 02:18 05/19/25 03:45 05/19/25 02:18 05/19/25 02:09 05/19/25 02:18
Review of Systems
-
History Source: Patient
All other systems: Reviewed and negative
Physical Exam
-
General: No Apparent Distress
HEENT: PERRLA
Respiratory: Clear to Auscultation; Negative Wheezes
Cardiac: S1/S2 and Irregular Rhythm
GI: Soft and Nontender
Musculoskeletal: Other (chronic RLE swelling (post knee))
Skin: Warm and Dry; Negative Rash
Neuro: AO x 3
Psych: Calm
Data Reviewed
-
Diagnostic Radiology: Report Reviewed by me
Labs: Labs Reviewed by me
--- NOTE | 2025-05-19 07:55 | CON.CAR ---
Consultation
Consultation Request
Date/Time Consultation Requested: 05/18/2025 at 2200
Date/Time Consultation Performed: 05/19/2025 at 8 AM
Requesting Provider: Kelby Hilario
Performing Provider: Dr. Jean Claude Rosas
Reason for Consultation: Symptomatic bradycardia
Medical History
-
Chief Complaint: Malaise
History of Present Illness:
89-year-old woman with PAF, remote AV saritha slow pathway ablation for SVT, with episodes of junctional bradycardia, had diltiazem stopped in January and placed on amlodipine, has felt poorly since then with fatigue, brain fog, no true syncope,
possibly some shortness of breath or weakness though the history is difficult to obtain. She denies chest pain. She has not fallen. She gets an epigastric 'sensation' and feels poorly during this time. She believes this is largely related to
switch to amlodipine. She was seen in our office 2 to 3 days ago. An echocardiogram has been ordered and a wearable monitor applied. She still has the monitor in place. Because of the symptoms she presented to the emergency department yesterday
pauses up to 3.8 seconds were seen. She continues to feel poorly with numerous pauses but none as long as that seen in the emergency department. It has been hypothesized that Timoptic could be contributing to periods of bradycardia but
ophthalmology is reluctant to change. In general, although she has multiple medication intolerances, she states that when she was on diltiazem she felt better. She no longer drives related to glaucoma and a macular hole.
Past Medical History
Past Medical History: Arrhythmias (Paroxysmal atrial fibrillation onset in 2021, history of junctional bradycardia, history of SVT status post ablation at [facility] 2005, with subsequent occasional recurrences PAF, ),
GERD, HTN, Hypercholesterolemia (Currently untreated, did not like atorvastatin), Valvular Disease (Aortic stenosis) and Other (History of hyponatremia, numerous medication intolerances, Raynaud's)
Past Surgical History: Cholecystectomy, Gynecological (Hysterectomy), Orthopedic (Knee arthroscopy, left total knee arthroplasty), Urological (Cystocele repair) and Other (Herniorrhaphy)
Social History
Tobacco: Non-Smoker
Alcohol: None
Drug: None
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
Living: Alone (At [facility])
Employment: Retired
Family History
Family History: Reviewed & Not Pertinent
Allergies / Home Medications
Allergy/AdvReac Type Severity Reaction Status Date / Time
bee venom protein (honey bee) Allergy Swelling Verified 11/23/24 07:31
brimonidine Allergy Swelling Verified 11/23/24 07:31
of eye
difluprednate (From Durezol) Allergy swelling Verified 11/23/24 07:31
of eye
furosemide (From Lasix) Allergy ringing of Verified 11/23/24 07:31
ears
labetalol Allergy over-all Verified 11/23/24 07:31
sickness
metronidazole Allergy irritated Verified 11/23/24 07:31
skin
shellfish derived Allergy Swelling Verified 11/23/24 07:31
of lips
(1980)
dexamethasone AdvReac Swelling Verified 11/23/24 07:31
of legs
after
dental
procedure
�Medication �Instructions �Recorded �Confirmed �Type
cholecalciferol (vitamin D3) 25 1,000 units PO DAILY 04/18/18 05/19/25 History
mcg (1,000 unit) tablet
apixaban 5 mg tablet (Eliquis) 5 mg PO BID 09/03/22 05/19/25 History
Held on 11/23/24.
Instructions: Resume on
11/26/24. hold for 72hrs post
op; resume Tuesday11/26/2024
losartan 100 mg tablet 100 mg PO DAILY 09/03/22 05/19/25 History
spironolactone 25 mg tablet 25 mg PO DAILY 09/03/22 05/19/25 History
levothyroxine 50 mcg tablet 50 mcg PO DAILY 05/16/23 05/19/25 History
(Synthroid)
cyanocobalamin (vitamin B-12) 250 250 mcg PO DAILY 08/29/23 05/19/25 History
mcg tablet
fexofenadine 60 mg tablet 60 mg PO QPM 08/29/23 05/19/25 History
acetaminophen 500 mg tablet 1,000 mg (2 x 500 mg) PO Q6HPRN 11/23/24 Rx
(Tylenol Extra Strength) PRN mild pain #1 tab
amlodipine 5 mg tablet 5 mg PO DAILY 05/19/25 05/19/25 History
Review of Systems
-
All other systems: Negative unless noted
Physical Exam
Vital Signs
Temp Pulse Resp BP Pulse Ox
36.5 C 56 18 145/76 96
05/19/25 02:18 05/19/25 03:45 05/19/25 02:18 05/19/25 02:09 05/19/25 02:18
Lab Results
05/19/25 04:59
05/19/25 04:59
Troponin I < 0.012 ng/ml 05/18/25 22:37
Physical Exam
General: No Apparent Distress
HEENT: Normocephalic
Respiratory: Clear
Cardiac: Irregular Rhythm and Murmur (Aortic stenosis murmur also with aortic regurgitation)
GI: Non Distended and Normal Bowel Sounds
Musculoskeletal: No Edema
Skin: Warm and Dry
Neuro: AO x 3
Psych: Calm
Impression / Plan
-
Impression:
Symptomatic bradycardia? Sick sinus syndrome with pauses up to 3.8 seconds
Paroxysmal atrial fibrillation
History of AV saritha slow pathway ablation 2005
Aortic stenosis, mild to moderate by echo July 2024
Hypertension
Hypercholesterolemia, untreated based on patient preference
GERD
Multiple medication intolerances
Hypothyroidism
Glaucoma
History of hyponatremia on hydrochlorothiazide
Raynaud's
Echo 07/12/2024: EF 59%, mild to moderate LVH, normal RV, dilated left atrium, MAC, mild mitral regurgitation, mild to moderate aortic stenosis, peak/mean gradient 27/13 mmHg, aortic valve area 1.2 cm2, mild aortic regurgitation, normal pulmonary
artery systolic pressure
Lexiscan sestamibi study April 2017: Small mild fixed anterior defect EF 75%
Plan:
She presents with vague symptoms and has evidence of sick sinus syndrome with pauses up to 3.8 seconds. However, she has not had syncope or loss of consciousness and she denies lightheadedness. In the absence of clear-cut symptoms, it is not
entirely clear that pacemaker implantation is mandated.
However, we have been unable to find medications that controlled her blood pressure, and she was on diltiazem which needed to be stopped for bradycardia. There is also question as to whether Timoptic could be contributing to bradycardia, though
ophthalmology is reluctant to abandon this as a treatment modality for her glaucoma.
In addition, she has evidence of aortic stenosis. I doubt this is symptomatic but she will require a follow-up echo. Her gradient was not high as of July. She also has a murmur of aortic regurgitation. There is no systemic manifestations of
entities such as endocarditis.
All of the above has been explained to the patient, including the ambiguity of her particular situation.
We will check an echocardiogram in the morning. I am still in favor of pacemaker implantation but will need to discuss with electrophysiology.
Okay to hold amlodipine at this time.
Data Reviewed
-
EKG: Tracing Personally Visualized and interpreted
Labs: Labs Reviewed by me (White count is 5.7, hemoglobin is 12.6, platelets are 223, BUN and creatinine are 8 and 0.4, total cholesterol is 234, LDL is 144, HDL is 74, TSH is 3.5)
Old Records: Reviewed
[2025-05-19] MEDS: VITAMIN B-12 250 MCG PO (08:39)
[2025-05-19] MEDS: VITAMIN D3 (cholecalciferol) 25 MCG PO (08:39)
[2025-05-19] MEDS: COZAAR 100 MG PO (08:39)
[2025-05-19] MEDS: ALDACTONE 25 MG PO (08:39)
--- NOTE | 2025-05-19 09:06 | CON.CAR ---
Consultation
Consultation Request
Date/Time Consultation Requested: 05/18/2025 at 2200
Date/Time Consultation Performed: 05/19/25 at 8 AM
Requesting Provider: Kelby Hilario
Performing Provider: Dr. Jean Claude Rosas
Reason for Consultation: Sinus pauses to 3.8 seconds
Medical History
-
Chief Complaint: Malaise, brain fog weakness dyspnea
History of Present Illness:
81 years old woman who developed atrial fibrillation and required MIAN cardioversion in 2021, has history of junctional bradycardia. Also mild to moderate aortic stenosis. She lives independently at [facility], no longer drives, and
in February diltiazem was stopped because of periods of bradycardia and amlodipine was substituted. She has felt unwell since that time with a vague epigastric sensation, malaise, possibly some weakness fatigue and dyspnea on exertion with 'brain
fog'. She was seen in our office May 17 monitor and echo were ordered. She was continued on amlodipine. She presented to the ER with these complaints yesterday and had sinus pauses up to 3.8 seconds. She denies syncope lightheadedness or loss
of consciousness. She has been admitted and had numerous pauses but none longer than that seen in the emergency department. It has been suggested that Timoptic could be causing bradycardia as well. When she was on diltiazem she felt better.
Past Medical History
Past Medical History: Arrhythmias (PAF, cardioversion in 2021, junctional bradycardia, history of slow pathway AV saritha ablation 2005), GERD, HTN, Hypercholesterolemia (Refuses statin therapy), Valvular Disease (Aortic stenosis, mild-moderate by
echo July 2024 with mild AI, mild MR) and Other (Hyponatremia,, H. pylori, retinal hole, glaucoma, osteoarthritis, Raynaud's)
Past Surgical History: Cholecystectomy, Gynecological (Hysterectomy), Orthopedic (Left total knee arthroplasty), Tonsilectomy and Other (Herniorrhaphy, cystocele repair)
Social History
Tobacco: Non-Smoker
Alcohol: None
Drug: None
Personal:
Living: Other (Lives at [facility], no longer drives)
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
Family History
Family History: Reviewed & Not Pertinent
Allergies / Home Medications
Allergy/AdvReac Type Severity Reaction Status Date / Time
bee venom protein (honey bee) Allergy Swelling Verified 11/23/24 07:31
brimonidine Allergy Swelling Verified 11/23/24 07:31
of eye
difluprednate (From Durezol) Allergy swelling Verified 11/23/24 07:31
of eye
furosemide (From Lasix) Allergy ringing of Verified 11/23/24 07:31
ears
labetalol Allergy over-all Verified 11/23/24 07:31
sickness
metronidazole Allergy irritated Verified 11/23/24 07:31
skin
shellfish derived Allergy Swelling Verified 11/23/24 07:31
of lips
(1980)
dexamethasone AdvReac Swelling Verified 11/23/24 07:31
of legs
after
dental
procedure
�Medication �Instructions �Recorded �Confirmed �Type
cholecalciferol (vitamin D3) 25 1,000 units PO DAILY 04/18/18 05/19/25 History
mcg (1,000 unit) tablet
apixaban 5 mg tablet (Eliquis) 5 mg PO BID 09/03/22 05/19/25 History
Held on 11/23/24.
Instructions: Resume on
11/26/24. hold for 72hrs post
op; resume Tuesday11/26/2024
losartan 100 mg tablet 100 mg PO DAILY 09/03/22 05/19/25 History
spironolactone 25 mg tablet 25 mg PO DAILY 09/03/22 05/19/25 History
levothyroxine 50 mcg tablet 50 mcg PO DAILY 05/16/23 05/19/25 History
(Synthroid)
cyanocobalamin (vitamin B-12) 250 250 mcg PO DAILY 08/29/23 05/19/25 History
mcg tablet
fexofenadine 60 mg tablet 60 mg PO QPM 08/29/23 05/19/25 History
acetaminophen 500 mg tablet 1,000 mg (2 x 500 mg) PO Q6HPRN 11/23/24 Rx
(Tylenol Extra Strength) PRN mild pain #1 tab
amlodipine 5 mg tablet 5 mg PO DAILY 05/19/25 05/19/25 History
Review of Systems
-
All other systems: Negative unless noted
Physical Exam
Vital Signs
Temp Pulse Resp BP Pulse Ox
36.3 C 59 18 141/69 97
05/19/25 08:00 05/19/25 08:39 05/19/25 08:00 05/19/25 08:39 05/19/25 08:00
Lab Results
05/19/25 04:59
05/19/25 04:59
Troponin I < 0.012 ng/ml 05/18/25 22:37
Physical Exam
General: No Apparent Distress
HEENT: Normocephalic
Respiratory: Clear
Cardiac: Irregular Rhythm and Murmur (Aortic stenosis and regurgitation, mild to moderate, carotid bruits, diminished upstrokes)
GI: Non Tender and Non Distended
Musculoskeletal: No Edema
Skin: Warm and Dry
Neuro: AO x 3
Psych: Calm
Impression / Plan
-
Impression:
Symptomatic bradycardia? Sick sinus syndrome with pauses up to 3.8 seconds
Paroxysmal atrial fibrillation
History of AV saritha slow pathway ablation 2005
Aortic stenosis, mild to moderate by echo July 2024
Hypertension
Hypercholesterolemia, untreated based on patient preference
GERD
Multiple medication intolerances
Hypothyroidism
Glaucoma
History of hyponatremia on hydrochlorothiazide
Raynaud's
Echo 07/12/2024: EF 59%, mild to moderate LVH, normal RV, dilated left atrium, MAC, mild mitral regurgitation, mild to moderate aortic stenosis, peak/mean gradient 27/13 mmHg, aortic valve area 1.2 cm2, mild aortic regurgitation, normal pulmonary
artery systolic pressure
Lexiscan sestamibi study April 2017: Small mild fixed anterior defect EF 75%
Plan:
She presents with vague symptoms and has evidence of sick sinus syndrome with pauses up to 3.8 seconds. However, she has not had syncope or loss of consciousness and she denies lightheadedness. In the absence of clear-cut symptoms, it is not
entirely clear that pacemaker implantation is mandated.
However, we have been unable to find medications that controlled her blood pressure, and she was on diltiazem which needed to be stopped for bradycardia. There is also question as to whether Timoptic could be contributing to bradycardia, though
ophthalmology is reluctant to abandon this as a treatment modality for her glaucoma.
In addition, she has evidence of aortic stenosis. I doubt this is symptomatic but she will require a follow-up echo. Her gradient was not high as of July. She also has a murmur of aortic regurgitation. There is no systemic manifestations of
entities such as endocarditis.
Furthermore, there is a history of paroxysmal atrial fibrillation and she is currently not on any rate controlling medications. She remains anticoagulated.
All of the above has been explained to the patient, including the ambiguity of her particular situation.
We will check an echocardiogram in the morning. I am still in favor of pacemaker implantation but will need to discuss with electrophysiology.
Okay to hold amlodipine at this time.
Data Reviewed
-
EKG: Tracing Personally Visualized and interpreted
Labs: Labs Reviewed by me
Old Records: Reviewed
--- NOTE | 2025-05-19 10:19 | PTCARENOTE ---
Pt is AOx3, no complaints of pain or discomfort at this time. Assist x1 OOB. SR on tele monitor, VSS. Pt will be NPO at OR for possible pacemaker tomorrow. Call winn within reach.
[2025-05-19] MEDS: CLARITIN 10 MG PO (17:30)
--- NOTE | 2025-05-19 23:17 | PTCARENOTE ---
Patient received at change of shift freshening up in the bathroom. Sinus rhythm on telemetry. Oxygen saturation 98% on room air. The patient denies pain at this time. Denies feeling lightheaded or dizzy. Reports mild upset stomach, crackers given.
The patient primarily attributes this to not sleeping much recently. Bedsides an upset stomach the patient offers no other complaints. Discussed plan of care including NPO at midnight for possible PPM insertion. Call winn within reach. Care ongoing.
[2025-05-20] VITALS (14 sets, daily range): BP systolic 104–137; BP diastolic 57–89; BMI 27.8
[2025-05-20 03:48] LABS: Hematocrit 38.8 % (37.0-47.0); Hemoglobin 13.4 g/dL (12.0-16.0); Mean Corp Hgb Conc. 34.5 g/dL (33.0-37.0); Mean Corpuscular Volume 92.2 fL (81.0-99.0); Platelet Count 223 10^3/uL (130-400); Red Cell Dist. Width 13.2 % (11.5-14.5)
[2025-05-20 03:59] LABS: INR 1.14; PT 14.9 Sec (11.4-14.6)
[2025-05-20 04:09] LABS: Blood Urea Nitrogen 11 mg/dl (7-17); Calcium 9.4 mg/dl (8.4-10.2); Carbon Dioxide 26 mmol/L (22-30); Chloride 103 mmol/L (98-107); Estimated Creatinine Clearance 54 ml/min; Glucose 94 mg/dl (70-99); Magnesium 2.1 mg/dl (1.6-2.3); Potassium 4.0 mmol/L (3.5-5.1); Sodium 131 mmol/L (135-145); eGFR > 60.00
[2025-05-20] MEDS: SYNTHROID 50 MCG PO (05:46)
--- NOTE | 2025-05-20 08:39 | W.PN.CARDCBS ---
Addendum entered and electronically signed by Drew Stearns MD 05/20/25 10:09:
I saw and examined the patient.
The TAILING MACHINE OPERATOR or PA's note was reviewed and I agree with the note.
Comment: General: Well developed, well nourished in NAD.
Neck: Supple, no JVD, HJR, carotids +2 B/L, no bruits bilaterally.
Heart: Non displaced PMI, RRR, no murmurs, No S3, S4, no rubs.
Lungs: Clear to auscultation bilaterally, no wheeze, rhonchi, rubs bilaterally,
normal expiratory phase.
Extremities: No clubbing, cyanosis or edema bilaterally.
Neuro: Grossly nonfocal, awake, alert and oriented x3.
Check echocardiogram. For pacemaker possibly later today. Eliquis remains on hold. Consider resume diltiazem once pacemaker is implanted. Discussed with electrophysiology and patient in detail
Original Note:
Today's Communication / Plan
-
Keep n.p.o.
Echo this a.m.
Likely pacemaker implant today
Eliquis remains on hold
Consider resumption of diltiazem for blood pressure once pacemaker implanted
Impression / Plan
-
PCP: Dr. Kapoor
Resin Remover: Jean Claude Desouza
Impression:
Presented 05/19/2025 w/ vague epigastric sensation, malaise, generalized weakness/fatigue, dyspnea on exertion with 'brain fog'
Symptomatic bradycardia
Sick sinus syndrome with pauses up to 3.8 seconds
Paroxysmal atrial fibrillation
History of AV saritha slow pathway ablation 2005
Aortic stenosis, mild to moderate by echo July 2024
Hypertension
Hypercholesterolemia, untreated based on patient preference
GERD
Multiple medication intolerances
Hypothyroidism
Glaucoma
History of hyponatremia on hydrochlorothiazide
Raynaud's
Echo 05/20/2025: Pending
Echo 07/12/2024: EF 59%, mild to moderate LVH, normal RV, dilated left atrium, MAC, mild mitral regurgitation, mild to moderate aortic stenosis, peak/mean gradient 27/13 mmHg, aortic valve area 1.2 cm2, mild aortic regurgitation, normal pulmonary
artery systolic pressure
Lexiscan sestamibi study April 2017: Small mild fixed anterior defect EF 75%
Plan:
She presents 05/19/2025 with vague symptoms including generalized weakness/fatigue intermittent dyspnea and brain fog. Symptoms have been ongoing for quite some time however she denies syncope or loss of consciousness.
- Currently has outpatient monitor on. Longstanding history of sinus bradycardia with junctional bradycardia on AV saritha blocking agents.
- Found to have evidence of sick sinus syndrome with pauses up to 3.8 seconds on tele in [facility].
- Discussed situation with electrophysiology who is also met with patient. Discussed placement of pacemaker and patient is agreeable, keep n.p.o.
Longstanding history of hypertension with multiple intolerances to medications that controlled her blood pressure, and she was on diltiazem which needed to be stopped for bradycardia. There is also question as to whether Timoptic could be
contributing to bradycardia, though ophthalmology is reluctant to abandon this as a treatment modality for her glaucoma.
- Will have patient undergo pacemaker implant then resume prior diltiazem which controlled blood pressure and patient was able to tolerate without significant side effects
Known mixed valve disease with aortic stenosis which was moderate on echo in July 2024 and mild MR. Will repeat echo this admission
History of paroxysmal atrial fibrillation and she is currently not on any rate controlling medications due to bradycardia. Maintained on Eliquis as outpatient. Currently on hold for pacemaker implant
Progress Note - Resin Remover
Subjective
Date of Service: May 20, 2025
Patient seen and examined. Patient lying in bed and reports occasional episodes of brain fog and vague abdominal hollow sensation.
Objective
Labs:
05/20/25 03:30
05/20/25 03:30
Labs
Hgb 13.4 g/dL (12.0-16.0) 05/20/25 03:30
Hct 38.8 % (37.0-47.0) 05/20/25 03:30
Plt Count 223 10^3/uL (130-400) 05/20/25 03:30
PT 14.9 Sec (11.4-14.6) H 05/20/25 03:30
INR 1.14 05/20/25 03:30
Sodium 131 mmol/L (135-145) L 05/20/25 03:30
Potassium 4.0 mmol/L (3.5-5.1) 05/20/25 03:30
BUN 11 mg/dl (7-17) 05/20/25 03:30
Creatinine 0.5 mg/dL (0.6-1.0) L 05/20/25 03:30
Glucose 94 mg/dl (70-99) 05/20/25 03:30
Troponins
05/18/25
22:37
Troponin I < 0.012
Vital Signs and I&O:
Vital Signs
Temp Pulse Resp BP Pulse Ox
97.3 F 57 20 129/64 98
05/20/25 08:07 05/20/25 06:00 05/20/25 08:07 05/20/25 03:24 05/20/25 08:07
Vital Signs
Temp Pulse Resp BP Pulse Ox
97.3 F 57 20 129/64 98
05/20/25 08:07 05/20/25 06:00 05/20/25 08:07 05/20/25 03:24 05/20/25 08:07
Intake & Output
05/18/25 05/19/25 05/20/25 05/21/25
06:59 06:59 06:59 06:59
Intake Total 480 / 480
Balance 480 / 480
Physical Exam
Physical Exam
GEN: No distress, awake, Ox3, lying in bed
HEENT: supple, anicteric, mmm
LUNGS: CTA, no wheezes/rales
CV: Reg, S1/S2, 2/6 syst RSB murmur
ABD: soft, BS+, NT/ND
EXT: No edema, clubbing or cyanosis
NEURO: Gross non-focal
SKIN: No rash, warm, dry, pink
[2025-05-20] MEDS: VITAMIN B-12 250 MCG PO (10:03)
[2025-05-20] MEDS: VITAMIN D3 (cholecalciferol) 25 MCG PO (10:04)
[2025-05-20] MEDS: COZAAR 100 MG PO (10:04)
[2025-05-20] MEDS: ALDACTONE 25 MG PO (10:04)
--- NOTE | 2025-05-20 12:17 | CM ---
CM following for DC planning needs.
Met w/ patient at bedside to complete initial assessment.
Pt. resides alone at [facility]. She is functionally indep. at baseline w/ ADLs, mobility with use of a SPC.
Pt. uses [facility] [employer] or [facility] for her prescription needs.
Anticipated DC plan is for home, no needs.
CM to follow.
--- NOTE | 2025-05-20 13:42 | PTCARENOTE ---
Pt wiped down with CHG wipes prior to going to EP lab for PPM
--- NOTE | 2025-05-20 14:52 | ITS.CL.PACE ---
[facility] [employer] - Pacemaker Implant
Pacemaker Implant
Procedure Report:
PACEMAKER IMPLANT REPORT
Primary Care Provider: Dr Felix Kapoor
Primary assembler flexible leads: Dr Jean Claude Desouza
Date of Procedure: 05/20/25
Procedure:
Implantation of dual-chamber permanent pacemaker utilizing the left bundle branch for conduction system pacing
Indication/Diagnosis:
Non-reversible symptomatic bradycardia due to sinus node dysfunction.
After informed consent was obtained, 'time out' was called and confirmed, the patient was prepped and draped in a sterile fashion. Lidocaine with epi was used for local anesthesia. Central venous access was obtained via subclavian venipuncture. An
incision was made along the left chest and a pre-pectoral pocket was formed. Using a Seldinger technique and peel-away sheaths, the pacing leads were placed under fluoroscopic guidance.
Fluoroscopy was used to determine likely anatomic site for left bundle branch pacing. The Viva la Vitatronic C315 sheath was used to deliver the Medtronic 3830 Selectsecure pacing lead with the helix exposed just exposed from the sheath tip during continuous
monitoring when pacemapping the septum during gentle clockwise rotation to obtain a paced QRS morphology of a W pattern in lead V1. Once the suspected optimal site was identified, lead deployment was performed with several rapid rotations as paced
QRS morphology was intermittently monitored until a paced QRS complex in lead V1 demonstrated development of an R wave [ ] (qR or rSR).
Unipolar pacing impedance dropped by approximately 100 Ohms suggesting it had reached the left ventricular subendocardial.
Stable VEgm injury current is present throughout final lead position including at end of case, suggesting there was no perforation through the septum into the LV cavity.
Unipolar pacing impedance is 1100 Ohms
Unipolar pacing threshold is stable at 1 V @ 0.4 ms.
Final conduction system paced QRS complex duration is 98 ms
LVAT is 55 ms and peak V5 -> peak V1 timing is 61 ms
There is QRS transition to LVSP / selective LBBP during threshold testing
Right atrial lead was placed at the RAA.
Once testing (see below) showed adequate and stable function, the leads were secured using the suture sleeves. The pocket was liberally irrigated with antibiotic solution. The leads were connected to the generator header and the leads and
generator were placed within the pocket. Fluoroscopy confirmed stable lead position. The pocket was closed in the typical fashion.
Fluoroscopy was used to guide lead placement.
IMPLANTS:
Medtronic [id number], SN: [id number], Left Pectoral
RA: Medtronic 5076-45, SN: PJN [id number], RAA
Left Bundle: Medtronic 3830 , SN:[id number], Interventricular septum at LBB
DEVICE TESTING:
Sensing: RA 3.6 mV, RV 7 mV
Capture: RA 0.75 V@0.4ms, RV 0.6 V@0.4ms
Ohms: RA 704, RV 980, bipolar
FINAL PROGRAMMING
Kelton Pacing: AAIR+ 60-130 ppm
COMPLICATIONS:
None
CONCLUSIONS:
1: Successful implant of dual chamber permanent pacemaker utilizing Left Bundle Branch conduction system capture for ventricular resynchronization pacing.
RECOMMENDATIONS:
1. Post-op care (tele, CXR, IV abx)
2. In-Office wound check in 5-7 days
Copy to:
Dr Felix Kapoor
Dr Jean Claude Desouza
[2025-05-20] MEDS: TYLENOL 650 MG PO ×2 (15:26→22:18)
--- NOTE | 2025-05-20 15:33 | PTCARENOTE ---
Rec'd Pt s/p ppm. Pt c/o bilat arm and whole body discomfort. Med with Tylenol 650 mg po as ordered. L upper chest pressure dsg D+I. VSS.
--- NOTE | 2025-05-20 17:39 | W.PN.HOSP.TC ---
Addendum entered and electronically signed by Eitan Naidu MD 05/21/25 14:05:
Plan for PPM placement on 05/20
Original Note:
Today's Communication/Plan
-
Plan for PPM placement with cardiology later today or tomorrow, pending patient's decision whether to go forward with the procedure.
Continue to hold Eliquis pending BP placement.
Continue to monitor clinical status.
Assessment / Plan
Assessment / Plan
Patient is an 89y F with PMH significant for AVNRT, A-Fib and hypothyroidism who presents to ED for evaluation of fatigue, found to have bradycardia with HR in 30's-40's. She had been taken off any AV saritha blocking agents (Diltiazem) since
January.
Symptomatic Bradycardia
Patient with drops in heart rate in he 30s - 40s on telemetry with occasional pauses (< 3 seconds)
Not on any chronotropic medications at this time
Monitor on telemetry
Cardiology recommends PPM placement later today, pending patient decision to go forward with the procedure
#Paroxysmal A-Fib
#History of AVNRT
Stable, continue to monitor
Eliquis is being held in anticipation of potential PPM placement
Not currently on any chronotropic medications
Benign Hypertension
Continue home meds of losartan, spironolactone
Hold amlodipine, as patient reports feeling unwell since starting this medication
Hypothyroidism
Currently stable, TSH 3.57 (05/18)
Continue levothyroxine
DVT Prophylaxis: SCDs
Code Status: Full
Anticipated Discharge: 24 - 48 hours
Subjective/Interval History
-
Date of Service: May 20, 2025
Patient seen the bedside Hospital day #2. Patient states that she feels 'tired.' She slept okay last night. She is still deciding about whether to have the PPM placed. Nursing reports NAEO.
Objective Data
-
Vital Signs:
Vital Signs
Temp Pulse Resp BP Pulse Ox
97.3 F 60 18 120/87 95
05/20/25 15:18 05/20/25 15:30 05/20/25 15:18 05/20/25 15:30 05/20/25 15:18
I&O
05/19/25 05/20/25 05/21/25
06:59 06:59 06:59
Intake Total 480 / 480
Balance 480 / 480
Review of Systems
-
History Source: Patient
Constitutional: Denies Fever, Fatigue or Chills
EENT: Reports No Symptoms Reported
Respiratory: Reports Trouble Breathing (Reports mild shortness of breath); Denies Cough
Cardiac: Denies Chest Pain, Palpitations or Syncope
Abdomen/GI: Denies Abdominal Pain, Nausea, Vomiting or Diarrhea
Genitourinary: Denies Difficulty Voiding
Musculoskeletal: Denies Edema
Skin: Reports No Symptoms
Neuro: Denies Headache, Weakness, Numbness or Lightheadedness
Physical Exam
-
Cardiac: Regular Rhythm, S1/S2 and Murmur (Soft systolic murmur best heard at RUSB); Negative Rub or Gallop
GI: Soft, Nontender and Normal Bowel Sounds
Skin: Warm and Dry
Neuro: AO x 3
[2025-05-20] MEDS: CARDIZEM CD 120 MG PO (18:10)
[2025-05-20] MEDS: CLARITIN 10 MG PO (18:10)
--- NOTE | 2025-05-20 20:00 | PTCARENOTE ---
Assumed care on pt at 1900, s/p pacemaker placement to Left upper chest, pressure dressing clean and intact, area around dsg without swelling bruising or bleeding, sling on. Pt educated on L arm restrictions and able to follow directions. A paced on
the tele monitor, HR 60's, bp stable. C/o generalized discomfort, resolved with Tylenol prn. Call winn within reach, advised to call for assistance overnight.
[2025-05-20] MEDS: ANCEF 5 IV (22:14)
[2025-05-21 03:01] VITALS: BP 129/67
[2025-05-21 03:02] VITALS: BP 129/67
[2025-05-21 04:17] LABS: Hematocrit 40.1 % (37.0-47.0); Hemoglobin 13.9 g/dL (12.0-16.0); Mean Corp Hgb Conc. 34.7 g/dL (33.0-37.0); Mean Corpuscular Volume 92.8 fL (81.0-99.0); Platelet Count 213 10^3/uL (130-400); Red Cell Dist. Width 13.2 % (11.5-14.5)
[2025-05-21 04:46] LABS: Blood Urea Nitrogen 11 mg/dl (7-17); Calcium 9.5 mg/dl (8.4-10.2); Carbon Dioxide 26 mmol/L (22-30); Chloride 104 mmol/L (98-107); Estimated Creatinine Clearance 54 ml/min; Glucose 96 mg/dl (70-99); Magnesium 2.1 mg/dl (1.6-2.3); Potassium 4.2 mmol/L (3.5-5.1); Sodium 134 mmol/L (135-145); eGFR > 60.00
[2025-05-21] MEDS: SYNTHROID 50 MCG PO (05:14)
[2025-05-21] MEDS: ANCEF 5 IV (05:14)
[2025-05-21 05:18] VITALS: BMI 27.7
[2025-05-21 08:00] VITALS: BP 142/69
--- NOTE | 2025-05-21 08:29 | W.PN.CARDCBS ---
Addendum entered and electronically signed by Drew Stearns MD 05/21/25 16:35:
I saw and examined the patient.
The TAX PROCESSOR or PA's note was reviewed and I agree with the note.
Comment: General: Well developed, well nourished in NAD.
Neck: Supple, no JVD, HJR, carotids +2 B/L, no bruits bilaterally.
Heart: Non displaced PMI, RRR, no murmurs, No S3, S4, no rubs.
Lungs: Clear to auscultation bilaterally, no wheeze, rhonchi, rubs bilaterally,
normal expiratory phase.
Left pacer site okay
Extremities: No clubbing, cyanosis or edema bilaterally.
Neuro: Grossly nonfocal, awake, alert and oriented x3.
Stable cardiology status for discharge. Discussed with primary service. Follow-up arranged.
Original Note:
Today's Communication / Plan
-
Status post pacemaker implant 05/20/2025
Echo stable this admission
Resumed Cardizem 05/20/2025
Resume Eliquis 5 mg twice a day today
Outpatient cardiology follow-up has been arranged
Patient stable for discharge from cardiac standpoint
Impression / Plan
-
PCP: Dr. Kapoor
Seo Coordinator: Jean Claude Desouza
Impression:
Presented 05/19/2025 w/ vague epigastric sensation, malaise, generalized weakness/fatigue, dyspnea on exertion with 'brain fog'
Symptomatic bradycardia/Sick sinus syndrome with pauses up to 3.8 seconds
s/p DC Medtronic PPM 05/20/2025
Paroxysmal atrial fibrillation
History of AV saritha slow pathway ablation 2005
Aortic stenosis, mild to moderate by echo July 2024
Hypertension
Hypercholesterolemia, untreated based on patient preference
GERD
Multiple medication intolerances
Hypothyroidism
Glaucoma
History of hyponatremia on hydrochlorothiazide
Raynaud's
Echo 05/20/2025: EF 60 to 65%. Stage II DD. Mild MR. Mild with peak/mean gradient 17/9 mmHg. RAFA 2.0 cm�. Mild AI. No change compared to prior echo.
Echo 07/12/2024: EF 59%, mild to moderate LVH, normal RV, dilated left atrium, MAC, mild mitral regurgitation, mild to moderate aortic stenosis, peak/mean gradient 27/13 mmHg, aortic valve area 1.2 cm2, mild aortic regurgitation, normal pulmonary
artery systolic pressure
Lexiscan sestamibi study April 2017: Small mild fixed anterior defect EF 75%
Plan:
She presented 05/19/2025 with vague symptoms including generalized weakness/fatigue intermittent dyspnea and brain fog. Symptoms have been ongoing for quite some time however she denies syncope or loss of consciousness.
- Longstanding history of sinus bradycardia with junctional bradycardia on AV saritha blocking agents.
- Found to have evidence of sick sinus syndrome with pauses up to 3.8 seconds on tele in [facility].
- s/p DC Medtronic PPM 05/20/2025; chest x-ray without pneumothorax.
- Pacemaker site without hematoma, ecchymosis
- Wound care instructions reviewed
- Outpatient cardiology incision check and follow up has been scheduled
Longstanding history of hypertension with multiple intolerances to medications that controlled her blood pressure, and she was on diltiazem which needed to be stopped for bradycardia.
- Resume diltiazem 120 mg daily now that patient has pacemaker. Uptitrate as needed for blood pressure control. Patient felt poorly with amlodipine
Known mixed valve disease with aortic stenosis which was moderate on echo in July 2024 and mild MR.
- Echo 05/20/2025 overall stable with preserved ejection fraction and no progression of valvular disease. Continue surveillance monitoring as outpatient
History of paroxysmal atrial fibrillation.
- Now patient status post pacemaker implant will resume diltiazem at 120 mg daily. Can uptitrate if needed for blood pressure control
-Resume Eliquis 5 mg twice a day
Stable from cardiac standpoint for discharge
Discussed with patient, nursing and hospitalist
Progress Note - Seo Coordinator
Subjective
Date of Service: May 21, 2025
Patient seen and examined. Patient lying in bed. Minor incisional soreness otherwise feels well. .
Objective
Labs:
05/21/25 04:04
05/21/25 04:04
Labs
Hgb 13.9 g/dL (12.0-16.0) 05/21/25 04:04
Hct 40.1 % (37.0-47.0) 05/21/25 04:04
Plt Count 213 10^3/uL (130-400) 05/21/25 04:04
PT 14.9 Sec (11.4-14.6) H 05/20/25 03:30
INR 1.14 05/20/25 03:30
Sodium 134 mmol/L (135-145) L 05/21/25 04:04
Potassium 4.2 mmol/L (3.5-5.1) 05/21/25 04:04
BUN 11 mg/dl (7-17) 05/21/25 04:04
Creatinine 0.5 mg/dL (0.6-1.0) L 05/21/25 04:04
Glucose 96 mg/dl (70-99) 05/21/25 04:04
Troponins
05/18/25
22:37
Troponin I < 0.012
Vital Signs and I&O:
Vital Signs
Temp Pulse Resp BP Pulse Ox
97.7 F 66 16 142/69 98
05/21/25 08:06 05/21/25 08:00 05/21/25 08:06 05/21/25 08:00 05/21/25 08:06
Vital Signs
Temp Pulse Resp BP Pulse Ox
97.7 F 66 16 142/69 98
05/21/25 08:06 05/21/25 08:00 05/21/25 08:06 05/21/25 08:00 05/21/25 08:06
Intake & Output
05/19/25 05/20/25 05/21/25 05/22/25
06:59 06:59 06:59 06:59
Intake Total 480 / 480 240 / 240
Balance 480 / 480 240 / 240
Physical Exam
Physical Exam
GEN: No distress, awake, Ox3
HEENT: supple, anicteric, mmm
LUNGS: CTA, no wheezes/rales
CV: Reg, S1/S2, 1/6 systolic murmur
Chest: Upper left anterior chest wall with [place] dressing. Very minimal heme, no evidence of hematoma or ecchymosis
ABD: soft, BS+, NT/ND
EXT: No edema clubbing or cyanosis
NEURO: Gross non-focal
SKIN: No rash, warm, dry, pink
[2025-05-21] MEDS: VITAMIN B-12 250 MCG PO (08:30)
[2025-05-21] MEDS: COZAAR 100 MG PO (08:31)
[2025-05-21] MEDS: ALDACTONE 25 MG PO (08:32)
[2025-05-21] MEDS: CARDIZEM CD 120 MG PO (08:32)
[2025-05-21] MEDS: VITAMIN D3 (cholecalciferol) 25 MCG PO (08:32)
[2025-05-21] MEDS: ELIQUIS 5 MG PO (09:40)
[2025-05-21] MEDS: TYLENOL 650 MG PO (09:47)
[2025-05-21 11:23] VITALS: BP 142/67
--- NOTE | 2025-05-21 11:30 | PTCARENOTE ---
Pt c/o incisional pain this morning, rated 3/10, med with Tylenol 650 mg po with relief noted.
--- NOTE | 2025-05-21 15:58 | W.PN.HOSP.TC ---
Addendum entered and electronically signed by Eitan Naidu MD 05/23/25 14:13:
Plan to DC home. Cleared by cardiology s/p PPM. Resume Eliquis this morning per cardiology recommendations. Outpatient cardiology follow-up.
Original Note:
Today's Communication/Plan
-
Successful PPM placement performed yesterday. Patient stable following the procedure.
Patient restarted on diltiazem and apixaban s/p PPM placement.
Plan for discharge to home later today, with close follow-up with cardiology and PCP.
Assessment / Plan
Assessment / Plan
Patient is an 89y F with PMH significant for AVNRT, A-Fib and hypothyroidism who presents to ED for evaluation of fatigue, found to have bradycardia with HR in 30's-40's. She had been taken off any AV saritha blocking agents (Diltiazem) since
January.
Symptomatic Bradycardia
Patient with drops in heart rate in he 30s - 40s on telemetry with occasional pauses (< 3 seconds)
Patient underwent successful PPM placement yesterday
Per cardiology, patient restarted on diltiazem
Monitor on telemetry
#Paroxysmal A-Fib
#History of AVNRT
Stable, continue to monitor
Per cardiology, apixaban to be restarted today
Patient restarted on diltiazem
Benign Hypertension
Continue home regimen of losartan, spironolactone
Per cardiology, amlodipine discontinued, as patient reports feeling unwell since starting this medication
Hypothyroidism
Currently stable, TSH 3.57 (05/18)
Continue levothyroxine
DVT Prophylaxis: SCDs
Code Status: Full
Anticipated Discharge: Today
Subjective/Interval History
-
Date of Service: May 21, 2025
Patient is seen at the bedside on hospital day #3. Patient states 'I think I am okay.' Patient reports mild achiness in her shoulder since her PPM placement yesterday. She has not needed any pain medication for this achiness. No other
complaints. Amenable to discharge to home later today.
Objective Data
-
Labs:
Laboratory Results
05/21/25
04:04
WBC 7.1
Hgb 13.9
Hct 40.1
Plt Count 213
Sodium 134 L
Potassium 4.2
Chloride 104
Carbon Dioxide 26
BUN 11
Creatinine 0.5 L
Glucose 96
Calcium 9.5
Vital Signs:
Vital Signs
Temp Pulse Resp BP Pulse Ox
97.7 F 64 18 142/67 98
05/21/25 11:20 05/21/25 14:30 05/21/25 11:20 05/21/25 11:23 05/21/25 11:23
I&O
05/20/25 05/21/25 05/22/25
06:59 06:59 06:59
Intake Total 480 / 480 240 / 240
Balance 480 / 480 240 / 240
Review of Systems
-
History Source: Patient
Constitutional: Denies Fever, Fatigue or Chills
EENT: Reports No Symptoms Reported
Respiratory: Denies Trouble Breathing or Wheezing
Cardiac: Denies Chest Pain, Palpitations or Syncope
Abdomen/GI: Denies Abdominal Pain, Nausea, Vomiting or Diarrhea
Genitourinary: Denies Difficulty Voiding
Musculoskeletal: Reports Other (Achiness in right shoulder)
Skin: Reports No Symptoms
Neuro: Denies Dizzy, Headache, Weakness, Numbness or Lightheadedness
Physical Exam
-
General: Well Developed, Well Nourished, No Apparent Distress and Comfortable
HEENT: Normocephalic and Atraumatic
Respiratory: Clear to Auscultation and Non Labored Respirations; Negative Wheezes or Crackles
Cardiac: Regular Rhythm, S1/S2 and Murmur (Soft systolic murmur loudest at RUSB); Negative Rub, Gallop, Tachycardic or Bradycardic
GI: Soft, Nontender and Normal Bowel Sounds
Musculoskeletal: No Cyanosis and No Edema
Skin: Warm and Dry
Neuro: AO x 3, No Motor Deficits and No Sensory Deficits
Psych: Calm
--- NOTE | 2025-05-21 17:40 | W.DCSUMMARY ---
Discharge Summary
Discharge Data
Date of Admission: 05/19/25
Date of Discharge: 05/21/25
-
Pending Results: No
Hospital Course
Discharging Physician : Héctor Ye MD; Eitan Naidu MD
Disposition : Home
Primary care physician : Rashawn Kapoor MD
Principal Discharge diagnosis : Symptomatic bradycardia secondary to sick sinus syndrome
Chronic Discharge diagnosis : Paroxysmal atrial fibrillation; aortic stenosis; hypertension; hypercholesterolemia; GERD; hypothyroidism; glaucoma; hyponatremia; Raynaud's syndrome
Hospital Course : Patient is an 89-year-old female with a past medical history of paroxysmal atrial fibrillation, AVNRT s/p ablation, aortic stenosis, hypertension, hypercholesterolemia, GERD, hypothyroidism, glaucoma, hyponatremia, and Raynaud's
syndrome who presented to the [facility] emergency department for evaluation of fatigue, vague epigastric sensation, malaise, and dyspnea on exertion with 'brain fog.' The patient was found to have a heart rate in the 30s and 40s on
telemetry. The patient was subsequently found to have evidence of sick sinus syndrome with pauses of up to 3.8 seconds. The patient was not on any chronotropic medications on presentation. Cardiology recommended placement of a permanent pacemaker
(PPM), and the patient elected to undergo the procedure. The patient's apixaban for atrial fibrillation was held from presentation until she underwent PPM placement. The patient underwent an echocardiogram prior to undergoing the procedure, which
was stable overall with preserved ejection fraction and no progression of valvular disease. The pacemaker was successfully implanted on hospital day #2. A chest x-ray performed after the procedure confirmed proper placement of the pacemaker with
leads projecting over the right atrium and right ventricle. The patient tolerated the procedure well and remained stable overnight. The patient was restarted on diltiazem 120 mg p.o. daily and apixaban 5 mg p.o. twice daily following the procedure.
Other than mild pain near the incision site, the patient had no additional complaints. She was medically cleared for discharge to home on hospital day #3.
Other than detailed above, all chronic conditions were managed with home medication regimens.
Important imaging findings :
Chest x-ray (05/20/2025) - IMPRESSION:
Left chest wall pacemaker with leads projecting over the right atrium and right ventricle. No pneumothorax. Mild cardiomegaly.
Echocardiogram (05/20/2025) - CONCLUSIONS:
Normal left ventricular chamber size. Normal left ventricular systolic
function. Left ventricular ejection fraction is 60-65% by volumetric
assessment. Normal regional wall motion. Mild concentric left ventricular
hypertrophy. Stage II diastolic dysfunction suggestive of abnormal relaxation
and increased filling pressures.
Mitral valve opens normally. Thickened mitral valve leaflets. Mitral annular
calcification. Mild mitral regurgitation.
Calcified aortic valve with decreased leaflet excursion. Mild aortic stenosis.
Peak gradient 17 mmHg/Mean gradient 9 mmHg - using and LVOT 2.1 cm the
estimated aortic valve area is 2.0 cm2. Mild aortic regurgitation.
Since echo July 2024, there is no significant change.
Procedure findings :
Procedure:
Implantation of dual-chamber permanent pacemaker utilizing the left bundle branch for conduction system pacing:
IMPLANTS:
Medtronic [id number], SN: [id number], Left Pectoral
RA: Medtronic 5076-45, SN: PJN [id number], RAA
Left Bundle: Medtronic 3830 , SN:[id number], Interventricular septum at LBB
FINAL PROGRAMMING
Kelton Pacing: AAIR+ 60-130 ppm
CONCLUSIONS:
1: Successful implant of dual chamber permanent pacemaker utilizing Left Bundle Branch conduction system capture for ventricular resynchronization pacing.
Discharge Plan
-
Patient Disposition: Home (Routine Discharge)
Discharge Diagnosis/Procedures: Pacemaker implant
Condition: Good
Diet: As tolerated
Activity: As tolerated
Driving Restrictions: No driving for 1 week
Bathing Restrictions: After seen by
Activity Restrictions/Additional Instructions:
Follow-up with [facility] on 05/27/2025
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
Follow-up with your PCP (Rashawn Kapoor MD) within 1 week
Stand Alone Forms: DC Inst - Implanted Device
Referrals:
[facility] [Provider Group] - 05/27/25 3:00 pm
Referral Note: Post device incision check appointment
Jean Claude Desouza MD [Active, Cardiology] - 08/01/25 1:40 pm
Rashawn Kapoor MD [Family Provider, Internal Medicine]
Additional Discharge Medication Instructions: Continue Eliquis 5 mg by mouth twice daily
Continue diltiazem 120 mg by mouth daily. Diltiazem can be uptitrated if needed for blood pressure control.
Discontinue amlodipine, as patient reported feeling poorly on this medication.
Prescriptions:
New
diltiazem HCl 120 mg Capsule,Extended Release 24hr
120 mg PO DAILY 30 Days Qty: 30 0RF
Continued
cholecalciferol (vitamin D3) 1,000 UNITS tablet
1,000 units PO DAILY
spironolactone 25 mg Tablet
25 mg PO DAILY
losartan 100 mg Tablet
100 mg PO DAILY
levothyroxine [Synthroid] 50 mcg Tablet
50 mcg PO DAILY
fexofenadine 60 mg Tablet
60 mg PO QPM
cyanocobalamin (vitamin B-12) 250 mcg Tablet
250 mcg PO DAILY
acetaminophen [Tylenol Extra Strength] 500 mg tablet
1,000 mg PO Q6HPRN PRN (Reason: mild pain) Qty: 1 0RF
Eliquis 5 mg Tablet
5 mg PO BID Qty: 0 0RF
Discontinued
amlodipine 5 mg Tablet
5 mg PO DAILY
Discharge Orders:
Discharge Patient (As Directed); Ordered 05/21/25
Ordered By: Nelson Godinez
Care Plan Goals
Care Plan Goals:
Problem: Readiness for enhanced knowledge related to diagnosis and treatment plan
Goal: Understand your diagnosis and treatment plan needs, including medications if applicable.
Instructions: Know your diagnosis, underlying causes and treatment plan options, including medications if applicable. Consult with your health care team to learn about your diagnosis and treatment plan, including medications if applicable.
Discharge Date and Time
Discharge Date/Time: 05/21/25 15:20
Print Language: AMHARIC
== END 2025-05-21 15:20 | disposition home or self-care (01) | DRG 243 ==
LOC: IVU 01:13
PROVIDERS: Internal Medicine Cardiovascular Disease; Nurse Practitioner; Physician Assistant; Student in an Organized Health Care Education/Training Program; ADMITTING PHYSICIAN Hospitalist; ATTENDING PHYSICIAN Hospitalist; CONSULT PHYSICIAN Internal Medicine Cardiovascular Disease; EMERGENCY PHYSICIAN Emergency Medicine; FAMILY PHYSICIAN Internal Medicine Geriatric Medicine
PROC: 0JH606Z Insertion of Pacemaker, Dual Chamber into Chest Subcutaneous Tissue and Fascia, Open Approach (ICD-10-PCS; 2025-05-20)
PROC: 02HK3JZ Insertion of Pacemaker Lead into Right Ventricle, Percutaneous Approach (ICD-10-PCS; 2025-05-20)
PROC: 02H63JZ Insertion of Pacemaker Lead into Right Atrium, Percutaneous Approach (ICD-10-PCS; 2025-05-20)
DX: I49.5 Sick sinus syndrome (principal); E87.1 Hypo-osmolality and hyponatremia; I47.19 Other supraventricular tachycardia; I48.0 Paroxysmal atrial fibrillation; I08.0 Rheumatic disorders of both mitral and aortic valves; E78.00 Pure hypercholesterolemia, unspecified; K21.9 Gastro-esophageal reflux disease without esophagitis; E03.9 Hypothyroidism, unspecified; H40.9 Unspecified glaucoma; I73.00 Raynaud's syndrome without gangrene; I10 Essential (primary) hypertension; Z87.891 Personal history of nicotine dependence; Z96.652 Presence of left artificial knee joint; Z88.3 Allergy status to other anti-infective agents; Z79.890 Hormone replacement therapy; Z79.01 Long term (current) use of anticoagulants; Z79.899 Other long term (current) drug therapy
CPT/HCPCS: 33208; 71045; 80048; 80053; 80061; 83735; 84443; 84484; 85025; 85027; 85610; 93005; 93306; 99284; C1769; C1785; C1887; C1898

== ENCOUNTER → 2025-07-20 22:00 | Outpatient (REF) | payer MEDICARE, OTHER, SELFPAY | LOC: DHSLP 22:00 | PROVIDERS: ATTENDING PHYSICIAN Physician Assistant Medical; FAMILY PHYSICIAN Internal Medicine Geriatric Medicine | DX: G47.30 Sleep apnea, unspecified (principal); G47.19 Other hypersomnia; R06.83 Snoring; E66.9 Obesity, unspecified; R51.9 Headache, unspecified | CPT/HCPCS: 95806 ==

== ENCOUNTER → 2025-10-30 07:32 | Outpatient (REF) | payer MEDICARE, OTHER, SELFPAY | LOC: RAD 07:32 | PROVIDERS: ATTENDING PHYSICIAN Nurse Practitioner Family; FAMILY PHYSICIAN Internal Medicine Geriatric Medicine | DX: T14.8XXA Other injury of unspecified body region, initial encounter (principal); I87.9 Disorder of vein, unspecified; I87.2 Venous insufficiency (chronic) (peripheral) | CPT/HCPCS: 93922; 93925; 93970 ==